=== PATIENT | female | born 2000 | race Caucasian/White ===

== ENCOUNTER 2024-08-22 19:10 | Emergency (ER) | payer MEDICAID ==
[~2024-08-22] VITALS: Ht 149.9 cm; Wt 71.7 kg
[2024-08-22 19:17] VITALS: O2SAT 98
[2024-08-22] MEDS: METHYLPREDNISOLONE SOD SUCC 125MG/2ML (ACT-O-VIAL) IV ONE (20:01)
[2024-08-22] MEDS: SODIUM CHLORIDE 0.9% 1,000 ML IV SCH (20:01)
[2024-08-22] MEDS: DIPHENHYDRAMINE 50MG/ML VIAL IV ONE (20:01)
[2024-08-22] MEDS: FAMOTIDINE 20MG/2ML VIAL IV ONE (20:01)
[2024-08-22 22:11] VITALS: BP 122/67; PULSE 85; RESP 18; TEMP 36.7; O2SAT 98
== END 2024-08-22 22:12 | disposition home or self-care (01) ==
LOC: ER 19:10
DX: T78.40XA Allergy, unspecified, initial encounter (principal); X58.XXXA Exposure to other specified factors, initial encounter
CPT/HCPCS: 99284; 96374; 96375; 96361; J2919; J1200; J3490